=== PATIENT | male | born 1970 | race African-American/Black ===

== ENCOUNTER 2017-11-08 04:00 | Emergency (ER) | payer OTHER, MEDICAID ==
[~2017-11-08] VITALS: Ht 170.2 cm; Wt 63.5 kg
[2017-11-08 04:00] VITALS: BP 113/74
--- NOTE | 2017-11-08 04:00 | NUR ---
PATIENT BIB [facility] TO ER [facility].
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
[2017-11-08] MEDS ORDERED: KETOROLAC 60 MG/2 ML VIAL IM ONE (04:20)
--- NOTE | 2017-11-08 04:27 | NUR ---
XRAY AT BEDSIDE.
[2017-11-08 04:44] VITALS: BP 121/80
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
== END 2017-11-08 04:44 ==
LOC: MED 04:00
DX: M25.512 Pain in left shoulder (principal); Z88.1 Allergy status to other antibiotic agents; Z02.89 Encounter for other administrative examinations; V89.2XXA Person injured in unspecified motor-vehicle accident, traffic, initial encounter; Y93.89 Activity, other specified; Y92.89 Other specified places as the place of occurrence of the external cause; Y99.8 Other external cause status
CPT/HCPCS: 73020; 96372; 99283; J1885; Q0092

== ENCOUNTER 2021-09-08 16:50 | Emergency (ER) | payer MEDICAID, OTHER ==
[~2021-09-08] VITALS: Ht 167.6 cm; Wt 51.7 kg
[2021-09-08 16:56] VITALS: BP 92/55
[2021-09-08 17:25] LABS: BASOPHILS % (AUTO) 0.3 % (0.0-2.0); EOSINOPHILS # (AUTO) 0.1 K/uL (0-0.4); EOSINOPHILS % (AUTO) 0.7 % (0.0-4.0); HEMOGLOBIN 8.4 g/dL (12.0-18.0); LYMPHOCYTES # (AUTO) 0.7 K/uL (2.0-11.5); LYMPHOCYTES % (AUTO) 4.4 % (20.5-51.1); MEAN CORPUSCULAR HEMOGLOBIN 25 pg (27-31); MEAN CORPUSCULAR HGB CONC 32 g/dL (33-37); MEAN CORPUSCULAR VOLUME 77.8 fL (80-94); MONOCYTES # (AUTO) 0.8 K/uL (0.8-1.0); MONOCYTES % (AUTO) 4.8 % (1.7-9.3); NEUTROPHILS # (AUTO) 13.9 K/uL (1.8-7.7); NEUTROPHILS % (AUTO) 89.8 % (42.2-75.2); PLATELET COUNT (AUTO) 630 K/uL (140-450); RED BLOOD CELL COUNT(AUTO) 3.35 MIL/uL (4.20-6.10); RED CELL DISTRIBUTION WIDTH 16.7 % (11.6-13.7); WHITE BLOOD COUNT (AUTO) 15.5 K/uL (4.8-10.8)
[2021-09-08 17:54] LABS: ALBUMIN 1.8 g/dL (3.4-5.0); ANION GAP 14.2 (8-16); ASPARTATE AMINOTRANSFERASE 12 U/L (15-37); CARBON DIOXIDE 29.2 mmol/L (21-32); CHLORIDE 99 mmol/L (98-107); CREATININE 0.9 mg/dL (0.6-1.3); GFR ARICAN-AMERICAN 114 mL/min (>90); GLUCOSE 164 mg/dL (74-106); MAGNESIUM 2.1 mg/dL (1.8-2.4); POTASSIUM 4.4 mmol/L (3.5-5.1); SODIUM SERUM 138 mmol/L (136-145); TOTAL BILIRUBIN 0.1 mg/dL (0.0-1.0); UREA NITROGEN, BLOOD 12 mg/dL (7-18)
[2021-09-08] MEDS ORDERED: NACL 0.9% 1,000 ML IV ONE (18:00)
[2021-09-08 21:05] VITALS: BP 95/55
--- NOTE | 2021-09-08 21:05 | NUR ---
Patient discharged with v/s stable. Written and verbal after care instructions given and explained. Patient verbalized understanding. Wheel Chair Assisted with to car. All questions addressed prior to discharge. Advised to follow up with PMD. VSS, A/OX4, UNLABORED BREATHING, AMBULATORY, AND CALM DEMEANOR.
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
== END 2021-09-08 21:05 | disposition home or self-care (01) ==
LOC: MED 16:50
DX: R55 Syncope and collapse (principal); R30.0 Dysuria
CPT/HCPCS: 36415; 80053; 81002; 83735; 84484; 85025; 93005; 96360; 96361; 99285; J7030

== ENCOUNTER 2023-10-25 14:48 | Emergency (ER) | payer OTHER ==
[~2023-10-25] VITALS: Ht 170.2 cm; Wt 61.7 kg
[2023-10-25 14:57] VITALS: BP 105/75; PULSE 15; RESP 15; TEMP 97.7
[2023-10-25] MEDS: NACL 0.9% 1,000 ML IV ONE (16:20)
[2023-10-25] MEDS: KETOROLAC 30 MG/ML VIAL IVP ONE (16:37)
[2023-10-25] MEDS: diphenhydrAMINE 50 MG/ML VIAL IVP ONE (16:38)
[2023-10-25] MEDS: METOCLOPRAMIDE 10 MG/2 ML INJ VIAL IVP ONE (16:41)
[2023-10-25] MEDS ORDERED: ONDA-188 SL (17:40)
[2023-10-25] MEDS ORDERED: ACET500T99 PO (17:40)
[2023-10-25] MEDS ORDERED: IBUP-2213 PO (17:40)
[2023-10-25] MEDS ORDERED: MECL-303 PO (17:40)
[2023-10-25] MEDS ORDERED: PRED20TA5 PO (17:42)
[2023-10-25] MEDS: MECLIZINE 25 MG TAB PO ONE (17:55)
[2023-10-25] MEDS: predniSONE 20 MG TAB PO ONE (17:55)
[2023-10-25 18:49] LABS: BASOPHILS % (AUTO) 0.9 % (0.0-2.0); EOSINOPHILS # (AUTO) 0.1 K/uL (0-0.4); EOSINOPHILS % (AUTO) 2.6 % (0.0-4.0); HEMATOCRIT 41.3 % (36-52); HEMOGLOBIN 13.2 g/dL (12.0-18.0); LYMPHOCYTES # (AUTO) 2.3 K/uL (2.0-11.5); LYMPHOCYTES % (AUTO) 44.2 % (20.5-51.1); MEAN CORPUSCULAR HEMOGLOBIN 26 pg (27-31); MEAN CORPUSCULAR HGB CONC 32 g/dL (33-37); MEAN CORPUSCULAR VOLUME 82.1 fL (80-94); MONOCYTES # (AUTO) 0.7 K/uL (0.8-1.0); MONOCYTES % (AUTO) 13.8 % (1.7-9.3); NEUTROPHILS % (AUTO) 38.5 % (42.2-75.2); PLATELET COUNT (AUTO) 211 K/uL (140-450); RED BLOOD CELL COUNT(AUTO) 5.03 MIL/uL (4.20-6.10); RED CELL DISTRIBUTION WIDTH 18.2 % (11.6-13.7); WHITE BLOOD COUNT (AUTO) 5.1 K/uL (4.8-10.8)
[2023-10-25 19:01] LABS: ANION GAP 13.5 (8-16); CALCIUM 9.1 mg/dL (8.5-10.1); CARBON DIOXIDE 26.7 mmol/L (21-32); POTASSIUM 4.2 mmol/L (3.5-5.1)
[2023-10-25 20:47] VITALS: BP 122/75; PULSE 51; RESP 17; TEMP 97.7; O2SAT 99
== END 2023-10-25 20:47 | disposition home or self-care (01) ==
LOC: MED 14:48
DX: R51.9 Headache, unspecified (principal); R42 Dizziness and giddiness; R11.0 Nausea; Z79.1 Long term (current) use of non-steroidal anti-inflammatories (NSAID); Z79.899 Other long term (current) drug therapy
CPT/HCPCS: 36415; 70450; 74176; 80048; 83605; 85025; 86140; 87040; 96374; 96375; 99285; J1200; J1885; J2765; J7030; J7512; J8597